=== PATIENT | female | born 1965 | race Caucasian/White ===

== ENCOUNTER → 2016-08-29 | Outpatient (CLI) | payer MEDICARE, MEDICAID ==
[~2016-08-29] MED LIST: ALBU2.5V7 AEROSOL; ALPR1TAB7 PO; ATOR80TA76 PO; CETI1TAB14 PO; CHLO500T3 PO; CHOL100018 PO; FISH1CAP51 PO; FLUO20CA30 PO; FLUO40CA7 PO; GABA-354 PO; GLIM4TAB3 PO; LEVO50TA11 PO; LISI-625 PO; METO25TA6 PO; OMEP20CA10 PO; OXYC30TA PO; POTA10CA37 PO; PRAM1TAB3 PO; TIOT18CA6 IH; TORS20TA4 PO; TRAZ-170 PO; ZIPR40CA27 PO
--- NOTE | 2016-08-29 15:48 | DI ---
Indication: ITS.REASON: M25.512 PAIN IN LEFT SHOULDER PROCEDURE: SHOULDER LEFT 2-3 VIEWS: Encounter: Initial Comparison: None Findings: There is no acute fracture, dislocation or malalignment identified. Acromioclavicular and glenohumeral joint spaces are maintained. Left cardiac pacemaker. Impression: No acute osseous abnormality. .
== END ==
LOC: IMA 15:00
PROVIDERS: ATTEND Family Medicine
DX: M25.512 Pain in left shoulder (principal); Z95.0 Presence of cardiac pacemaker

== ENCOUNTER → 2016-09-02 | Outpatient (CLI) | payer MEDICARE, MEDICAID ==
[~2016-09-02] MED LIST changes: +IOHEXOL 180 MG/ML 20ml INJECTION ONE; +LIDOCAINE 1% (10mg/ml) 5ml VIAL ONE; +MethylPREDNISolone ACETATE 40mg/1ml ONE
--- NOTE | 2016-09-02 16:58 | DI ---
Indication:ITS.REASON: M54.5 LOW BACK PAIN Procedure:EPIDURAL INJ.SPINE W FLUO CATH LUMBAR EPIDURAL INJECTION: The patient has low back and radicular pain. The patient has had a previous epidural that provided moderate relief. The details of the procedure, including the benefits, risks, and alternatives were explained to the patient. All of their questions were answered. They stated that they understood and wished to proceed. Informed consent was then obtained. A pre-procedural timeout was performed to confirm the correct patient and procedure. Utilizing aseptic technique, local lidocaine anesthetic, and fluoroscopic guidance throughout, a 22-gauge spinal needle was directed into the lumbar epidural space via an interlaminar approach at the L5-S1 level. Contrast was injected to assure proper positioning of the needle tip. A fluoroscopic image was then taken and archived. Subsequently, 120 mg Depo-Medrol was injected into the epidural space. The patient tolerated the procedure well. IMPRESSION: Successful lumbar epidural steroid injection. Fluoroscopy dose: 25.12 mGy (Cumulative air kerma) Kody Garcia RPA/LINDA performed this under my personal supervision. .
== END ==
LOC: IMA 13:29
PROVIDERS: ATTEND Family Medicine
DX: M54.5 Low back pain (principal)
CPT/HCPCS: 62323; J1030; Q9965